=== PATIENT | male | born 1955 | race Caucasian/White ===

== ENCOUNTER 2017-08-18 16:30 | Outpatient (RCR) | payer BC, SELFPAY ==
--- NOTE | 2017-07-21 16:50 | HP.PTEVAL_ITS ---
Patient's Visit Information FORD GORE is a 61 year old M referred to Physical Therapy by Fidel Porter with a diagnosis of L shoulder sprain. Date of Evaluation: 07/21/17 Physical Therapist: TREY CurtisT, OC - Visit Plan Frequency: 2-3x /Week Duration: 4-6 Weeks Plan: 2-3x/week for 4-6 weeks. 1. US to R biceps origin area. 2. Gentle PROM and make sure patient resting it properly. 3. Painfree strength RC and scap. 4. TENS and ice if needed. EG to recheck after 3 weeks for referral back to doctor if no better. - Subjective Subjective: L shoulder pain for a while. Reaching OH was bothering it and he scheduled with [place]. 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 Gave him a cortisone shot and that helped. MRI did not show tears. Cortisone shot has helped a little bit but not much. 50% better for a couple days. Hurts at night if doesn't keep it right at his side. Works: with a hoist , avoids pulling with L UE and using two wrenches hurts. Not on limited duty. Getting out of bed reaching hurts. dressing hurts to put belt on behind him. Shirt on will set it off. Hobbies: workouts 3days per week and is still doing spinning classes, does avoid overhead workout. - Pain L shoulder Pain Intensity (Out of 10): 5 Pain Intensity Range: 4, 9 Comment: laterally. - Objective Posture is forward head and scap slightly. Tender to touch on biceps tendon and superior shoulder g-h joint L. AROM full but pain end of flexion and IR. elbow and wrist ROM WFL. Strength UE 4+/5 B, elbow and shoulder. Reflexes 2/3 bi and tri. Sensation is WNL to gross light touch in UE. - HK L. + neer L. + labral active test L. - sulcus - Goals Goal 1:: Full aROM without pain kn L shoulder. Goal 2:: Painfree at rest. Goal Time Frame: 4-6 Weeks Goal 3:: I approp HEp to minimize future problems. Goal Time Frame: 4-6 Weeks Goal 4:: Sleep without interruption Goal Time Frame: 4-6 Weeks Goal 5:: Reacha t work without noticing shoulder. Goal Time Frame: 4-6 Weeks - Rehabilitation Potential Physical Therapy Diagnosis: l shoulder sprain/labral pathology. Rehabilitation Potential: Fair - Anticipated Interventions Patient/Client Instruction: Educate patient on: Condition, Plan of Care For the Purpose of:: To decrease pain, To increase ROM, To improve ability of physical actions for home/community/work/leisure Therapeutic Exercise to Include: Strength training, Postural training, Passive ROM, Active ROM For the Purpose of:: To decrease pain, To increase ROM, To improve muscle performance and motor function, To improve ability of physical actions for home/ community/work/leisure Manual Therapy Techniques to Include: Mobilization Comment: grade 1/2 g-h L For the Purpose of:: To increase ROM TENS: Yes Cryotherapy (ice pack, ice massage): Yes Ultrasound (thermal/non thermal): Yes - nonthermal L bicep area origin For the Purpose of:: To decrease pain, To decrease swelling/inflammation Thank you for the opportunity to evaluate your patient. For Medicare and Medicare HMO plans, please review the plan of care and approve it. It will need to be FAXED BACK to us at [phone] for Medicare purposes. Please let me know if there are questions or concerns regarding this plan of care. Physician Signature: Date:
--- NOTE | 2017-08-18 16:30 | DT_ITS ---
This patient was seen during an EMR downtime August 15, 2017 - August 22, 2017. This patient may have a combination of paper and electronic documentation or all paper documentation. All documentation is viewable within the e-chart portion of [facility] for each patient visit.
--- NOTE | 2017-10-20 12:46 | HP.PTDCNRP_ITS ---
HP - Discharge Summary (1) - Patient Information FORD GORE was seen in my office for initial evaluation on 07/21/17. The following Plan of Care was established for this patient: Initial Frequency: 2-3x /Week Initial Duration: 4-6 Weeks - Anticipated Interventions Patient/Client Instruction: Educate patient on: Condition, Plan of Care For the Purpose of:: To decrease pain, To increase ROM, To improve ability of physical actions for home/community/work/leisure Therapeutic Exercise to Include: Strength training, Postural training, Passive ROM, Active ROM For the Purpose of:: To decrease pain, To increase ROM, To improve muscle performance and motor function, To improve ability of physical actions for home/ community/work/leisure Manual Therapy Techniques to Include: Mobilization Comment: grade 1/2 g-h L For the Purpose of:: To increase ROM TENS: Yes Cryotherapy (ice pack, ice massage): Yes Ultrasound (thermal/non thermal): Yes - nonthermal L bicep area origin For the Purpose of:: To decrease pain, To decrease swelling/inflammation This patient was last seen in our office 08/18/17. Pertinent comments regarding their Physical therapy will appear below: Pt seen for 6 visits overall with three noshows in the middle. Was to f/u with PT at the end of August but did not attend that visit. Will discontinue due to nonattendance. At this point I will be discontinuing this patient from physical therapy. I would be happy to see this patient again in the future if found appropriate by the physician. Thank you! Santiago Butler, DPT, OC
== END 2017-08-18 19:00 | disposition home or self-care (01) ==
LOC: PT 16:30
PROVIDERS: Visit Provider Orthopaedic Surgery
DX: S43.492D Other sprain of left shoulder joint, subsequent encounter (principal)
CPT/HCPCS: 97014; 97035; 97110; 97162; G0283

== ENCOUNTER 2018-11-22 07:39 | Emergency (ER) | payer BC, SELFPAY ==
[2018-11-22 07:39] VITALS: BP 163/82; PULSE 64; RESP 16; TEMP 36.6; O2SAT 97; BMI 24.3
--- NOTE | 2018-11-22 07:52 | EKG12_ITS ---
Test Reason : VISION Blood Pressure : / mmHG Vent. Rate : 066 BPM Atrial Rate : 066 BPM P-R Int : 168 ms QRS Dur : 082 ms QT Int : 398 ms P-R-T Axes : 072 068 054 degrees QTc Int : 417 ms Normal sinus rhythm Normal ECG Confirmed by DARIAN ESPINOSA, DEISI ([id number]), industrial editor TIFFANIE HOOKS ([id number]) on 11/24/2018 11:35:30 AM Referred By: MELISSA Confirmed By:AHSAN FARMER MD
--- NOTE | 2018-11-22 07:53 | MRI_ITS ---
STUDY: MRI BRAIN WITHOUT CONTRAST REASON FOR EXAM: Male, 63 years old. Left-sided visual changes. TECHNIQUE: Standardized multiplanar fat and water weighted pulse sequences were obtained. COMPARISON: CT of the head dated January 27, 2016. FINDINGS: There is mild cerebral atrophy with widening of the extra-axial spaces and ventricular dilatation. There are a limited number of small white matter hyperintensities, distributed throughout the deep white matter tracts of the cerebral hemispheres, consistent with mild chronic white matter ischemic changes. There is no evidence for recent intracranial ischemia or other cause of cytotoxic edema on diffusion weighted imaging (DWI). There is a focus of susceptibility artifact in the right periatrial white matter. This is probably a result of the previous petechial hemorrhage Normal bilateral basal ganglia. Normal thalami. There is no extra-axial fluid accumulation. Normal flow voids within the major intracranial circulation suggesting patency by spin echo criteria. Normal sella turcica, pituitary gland, infundibular stalk, optic chiasm and hypothalamus. Normal tectal plate and pineal gland. Normal midbrain, harvey and medulla. Normal cerebellum. Normal basal cisterns. Normal bilateral temporal bones. Normal bilateral internal auditory canals. No demonstrated orbital abnormality, within the constraints of a routine brain study. There appears to be a complete opacification of the right maxillary sinus with what may represent inspissated secretions or mucoperiosteal thickening. Normal calvarium and skull base. Normal visualized soft tissue structures. Normal visualized upper cervical spine. MRI/Brain without Contrast IMPRESSION: 1. Involutional changes of the brain, as described above. 2. Susceptibility artifact in the right periatrial region may be the result of previous hemorrhagic infarct. 3. Complete opacification of the right maxillary sinus, new since the previous study Electronically Signed: Patience Sahni MD at 9:47 EDT , Service support ,
--- NOTE | 2018-11-22 07:55 | ED.VIS.GEN ---
History of Present Illness Chief Complaint: Vision Prob Informant: Patient Onset: Today Narrative: Patient has no current complaints. He had an episode of about 15 minutes this morning where he thought he may have had some vision changes on the left, his screen on the computer was somewhat blurry, this is mostly in the left eye however when he closed his left eye he still had troubles concentrating with his right eye. He did not see any floaters. He did not see a curtain close down on him, he did not have partial vision changes this was a diffuse blurred vision with the left eye involved more than the right. He denies any headache. He denies any weakness paresthesia speech difficulties or confusion. He denies palpitations recently chest pain or shortness of breath. Past Medical History - Allergies and Home Meds Allergies/Adverse Reactions: Allergies No Known Allergies Allergy (Verified 11/22/18 07:39) Primary Care Physician: Cheng Nunez MD [Primary Care Provider] - Past Medical History: - - Hypertension, hypercholesterolemia Smoking Status: Never smoker Review of Systems All systems negative except as indicated General: Denies: Fever Eyes: Reports: Visual changes - bilaterally Cardiovascular: Denies: Chest pain, Palpitations Respiratory: Denies: Dyspnea, Cough Gastrointestinal: Denies: Abdominal pain, Nausea Musculoskeletal: Denies: Myalgias, Neck pain Skin: Denies: Rash Neurological: Denies: Headache, Weakness Endocrine: Denies: Polyuria, Polydipsia Physical Exam Vital Signs/Narrative: Vital Signs Temp Pulse Resp BP Pulse Ox 11/22/18 07:39 97.8 F 64 16 163/82 H 97 Inital Vital Signs reviewed: Yes General: Well nourished, Well developed Eyes: Perrl, EOMI, - - Pupils are equal and reactive bilaterally. No conjunctival erythema. Posterior exam is limited secondary to myosis. He has normal visual bertrand without any deficit. He has normal vision, see visual acuity. ENT: Moist mucous membranes Neck: Supple Cardiovascular: Regular rate, Regular rhythm Respiratory: No distress, CTA bilaterally Abdomen: Soft Back: Nontender, Normal Inspection Extremities: Nontender, No edema Skin: Normal color Neurological: Alert, Cranial nerves II-XII grossly intact, Normal Strength, Normal Sensation, Normal Gait. Negative for: Confused, Weakness Psychological: Normal affect Diagnostic/Tx/Re-eval - Rhythm Strip Rhythm Strip: Sinus Rhythm Rate: 66 Ectopy: None - EKG Initial EKG Interpretation: Sinus Rhythm, No Acute Injury Pattern, - - Normal CT interval. Normal ST segments. Normal QTC. No ischemia. Interpreted by emergency doctor - Medical Decision Making Patient had very vague symptoms, his ABCD 2 score is 2. I am not sure if this is a TIA however he has normal vision at this time he has no symptoms and he has a normal MRI in the emergency department I believe he is safe for discharge. I will follow-up with ophthalmology. He also needs to follow-up with PCP. ED Disposition - Plan for ED Patient: Disposition: Home or Assisted Living Diagnosis: Blurred vision Referrals: Cheng Nunez MD [Primary Care Provider] - 3-5 Days Mamta Lubin MD [STAFF PHYSICIAN] - 2 Days Additional Instructions: If you have any further vision changes, numbness, confusion, speech problems or weakness please return to the emergency department right away
[2018-11-22 08:09] VITALS: O2SAT 98
[2018-11-22 08:21] LABS: Absolute Lymphocyte Count 1.42 X10^3/uL (0.83-4.51); Absolute Neutrophil Count 2.7 X10^3/uL (2.0-7.7); Basophil# 0.05 X10^3/uL; Eosinophil# 0.24 X10^3/uL; Eosinophils% 4.9 % (0-5); Hematocrit 47.8 % (40-54); Hemoglobin 15.6 g/dL (13.0-16.5); Lymphocyte # 1.42 X10^3/ul (4.0); Lymphocyte % 29.1 % (19-41); Mean Corp Hgb Conc 32.6 g/dL (32-36); Mean Corpuscular Hgb 28.5 pg (27.0-32.0); Mean Corpuscular Volume 87.2 fL (80-94); Mean Platelet Vol. 10.5 fl (6.2-12.0); Monocyte# 0.49 X10^3/uL; NRBC Flagged by Analyzer 0 % (0-5); Neutrophil # 2.67 X10^3/uL (2.7-7.7); Neutrophil % 54.8 % (47-70); Platelet Count 180 K/mm3 (150-450); RBC Distribution Width CV 12.4 % (11.6-14.6); RBC Distribution Width SD 39.6 fl (35.1-43.9); Red Blood Count 5.48 M/mm3 (4.6-6.2); White Blood Count 4.9 K/mm3 (4.4-11.0)
--- NOTE | 2018-11-22 08:21 | RAD_ITS ---
STUDY: X-RAY - ORBITS REASON FOR EXAM: Male, 63 years old. This study is being performed as a clearance examination for exclusion of orbital metal, prior to the performance of an MRI examination. TECHNIQUE: 2 view(s) of the orbits were obtained. COMPARISON: None. FINDINGS: Normal bilateral orbits without a metallic orbital foreign body. Normal visualized facial bones. Opacification of the right maxillary sinus. The soft tissue structures are unremarkable. RAD/Orbits for Foreign Body IMPRESSION: No demonstrated metallic orbital foreign body. The patient is cleared for an MRI examination. Opacification of the right maxillary sinus. Electronically Signed: Sukhdev Kowalski, at 9:21 EDT , Service support ,
[2018-11-22 08:40] LABS: Anion Gap 3 (5-15); BUN 17 mg/dL (7-18); Calcium,Total 9.2 mg/dL (8.5-10.1); Chloride 108 mmol/L (98-107); Creatinine, Serum 1.06 mg/dL (0.70-1.30); EST Glomerular Filtration Rate 75 mL/min (>60); Est Glom Filt Rate - Afr Amer 91 mL/min (>60); Estimated Creatinine Clearance 74.61 ml/min; Glucose 89 mg/dL (74-106); Potassium 4.8 mmol/L (3.5-5.1); Sodium Level 140 mmol/L (136-145)
[2018-11-22 09:48] VITALS: O2SAT 99
[2018-11-22 10:20] VITALS: BP 155/97; RESP 20
== END 2018-11-22 10:22 | disposition home or self-care (01) ==
PROVIDERS: Emergency Provider Emergency Medicine; Family Provider Internal Medicine; PCP Internal Medicine
DX: H53.8 Other visual disturbances (principal); H57.03 Miosis; I10 Essential (primary) hypertension; E78.00 Pure hypercholesterolemia, unspecified
CPT/HCPCS: 70030; 70551; 80048; 84484; 85025; 93005; 99284; A4216

== ENCOUNTER → 2018-12-28 16:40 | Outpatient (CLI) | payer BC, SELFPAY ==
--- NOTE | 2018-12-28 16:43 | CT_ITS ---
STUDY: CT MAXILLOFACIAL SINUSES REASON FOR EXAM: Male, 63 years old. Chronic maxillary sinusitis. RADIATION DOSAGE (If Supplied By Facility): CTDIvol = ( 33.06 ) mGy, DLP = ( 776.00 ) mGycm TECHNIQUE: The patient was scanned in a multi detector CT scanner. High resolution axial imaging was performed without the administration of intravenous contrast material. Sagittal and coronal images were reconstructed. Individualized dose optimization techniques were used for this CT. COMPARISON: None. FINDINGS: FRONTAL SINUSES: Minimal mucosal thickening in the medial portion of the right frontal sinus. Normal left frontal sinus. ETHMOIDAL SINUSES: Mild mucosal thickening of the right anterior ethmoid sinus. The remaining ethmoids are normal. MAXILLARY SINUSES: Complete opacification of the right maxillary sinus with mild sclerotic wall thickening suggesting chronic sinusitis. Very minimal mucosal thickening in the left maxillary sinus. SPHENOIDAL SINUSES: Normal aeration, without mucosal inflammatory disease. Obstructed right ostiomeatal unit due to mucosal thickening extending out into the semilunar hiatus and the right lateral nasal wall. Normal and patent left ostiomeatal unit. Normal bilateral middle turbinates. Normal bilateral inferior turbinates. Mild right nasal septal deviation. There is patency of the bilateral nasal airways. The visualized osseous structures are normal. The visualized bilateral orbital contents are normal. Mild atherosclerotic calcifications involving both internal carotid artery siphons. CT/Sinus/Facial Bone IMPRESSION: 1. Complete opacification of the right maxillary sinus with sclerotic wall thickening suggesting chronic sinusitis. This is presumably secondary to the obstructed right ostiomeatal unit. Endoscopy will be very helpful in excluding any obstructing lesion in the right lateral nasal wall. 2. Mild mucosal thickening in the right anterior ethmoid sinus, left maxilla sinus and in the medial aspect of the right frontal sinus. 3. Patent left ostiomeatal unit. Electronically Signed: Eduardo Dominguez MD at 10:13 EDT , Service support ,
== END ==
PROVIDERS: Family Provider Internal Medicine; PCP Internal Medicine; Referring Provider Otolaryngology; Visit Provider Otolaryngology
DX: J32.0 Chronic maxillary sinusitis (principal)
CPT/HCPCS: 70486

== ENCOUNTER 2023-05-10 11:00 | Emergency (ER) | payer MEDICARE, OTHER, SELFPAY ==
[2023-05-10 11:01] VITALS: BP 196/104; PULSE 73; RESP 16; TEMP 36.6; O2SAT 99; BMI 24.6
--- NOTE | 2023-05-10 11:12 | CT_ITS ---
STUDY: CTA HEAD AND NECK WITH CONTRAST REASON FOR EXAM: Male, 67 years old. Headache RADIATION DOSAGE (If Supplied By Facility): CTDIvol = ( 28.88 ) mGy, DLP = ( 1431.85 ) mGycm TECHNIQUE: CT angiography was performed with a multi-detector CT scanner. Data acquisition was obtained from the skull base through the vertex following intravenous administration of IV 100mL [id number]. MIP images were reconstructed from the axial data set. Post-processing of the angiographic images was performed, with multiplanar reformation and 3D reconstruction. Individualized dose optimization techniques were used for this CT. COMPARISON: No relevant priors. FINDINGS: Normal bilateral petrous carotid arteries. There is calcified plaque formation of the right cavernous carotid artery, without a cross-sectional luminal stenosis. There is calcified plaque formation of the left cavernous carotid artery, without a cross-sectional luminal stenosis. Normal right A1 segments of the anterior cerebral artery. Normal left A1 segments of the anterior cerebral artery. Normal intact anterior communicating artery (ACOM). Normal bilateral A2 segments of the anterior cerebral arteries. Normal right M1 and M2 segments of the middle cerebral arteries, with a normal M1 bifurcation. Normal left M1 and M2 segments of the middle cerebral arteries, with a normal M1 bifurcation. Normal right posterior communicating artery (PCOM). Normal left posterior communicating artery (PCOM). Normal bilateral vertebral arteries. Normal basilar artery with a normal basilar bifurcation. The visualized bilateral superior cerebellar (SCA) arteries are normal. Normal bilateral P1, P2 and visualized P3 segments of the posterior cerebral arteries. There is no demonstrated aneurysm of the [place] of [place]. There is opacification of the right maxillary sinus. Soft tissue density is seen protruding into the right nasal fossa suggestive of possible polyposis. There is partial opacification of the ethmoid sinuses. Mucosal thickening of the left maxillary sinus. AORTIC ARCH: There is atherosclerotic calcific plaque formation of the aortic arch and great vessels arising from the aortic arch, without a hemodynamically significant stenosis. There is a bovine origin of the great vessels with a common origin of the brachiocephalic and left common carotid artery. Normal origin of the left subclavian artery. RIGHT CAROTID ARTERIES: Normal right common carotid artery (CCA). Normal right common carotid bulb. There is mild atherosclerotic plaque formation of the origin of the right internal carotid artery with less than 50% cross sectional diameter stenosis. Normal visualized cervical portion of the right internal carotid artery. Normal origin of the right external carotid artery (ECA). LEFT CAROTID ARTERIES: Normal left common carotid artery (CCA). Normal left common carotid bulb. There is mild atherosclerotic plaque formation of the origin of the left internal carotid artery with less than 50% cross sectional diameter stenosis. Normal visualized cervical portion of the left internal carotid artery. Normal origin of the left external carotid artery (ECA). VERTEBRAL ARTERIES: Normal bilateral vertebral arteries. CT/CTA Head AND Neck W/ Contrast IMPRESSION: Calcific plaques at 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 Opacification of the right maxillary sinus with a soft tissue density seen in the right nasal fossa. Partial opacification of the ethmoid sinuses and left maxillary sinus. Electronically Signed: Sukhdev Kowalski MD at 12:25 EST ,
--- NOTE | 2023-05-10 11:13 | EX.ED.VIS.HA ---
HPI History of Present Illness Chief Complaint: Headache Detail of Chief Complaint: Headache Informant: patient Narrative Narrative: Patient presents with headache that initially started 3 days ago. Patient had a headache that he rated about an 8 out of 10 that he woke up with. He had had a Temporary cap placed to his left upper molar last week and thought maybe the headache was related. He denies fevers or chills or sweats. He describes some head pressure. He typically does not get headaches. He denies any falls or head injuries. Headache was mostly gone yesterday but woke up with a mild headache today and then he did a spin class which made the headache significantly worse and now rates it a 7 out of 10. He denies nausea or vomiting or photophobia. Does not have history of migraines. No family history of brain tumors or aneurysms. PFSH FOR[facility]LY [facility], [facility] Medical History no medical history Home Medications multivitamin (Daily Multiple tablet) 1 ea PO DAILY 07/21/16 [History Last Taken 07/21/16] atorvastatin 20 mg tablet 1 tab PO DAILY 11/22/18 [History Last Taken Unknown] lisinopril 10 mg tablet 10 mg PO DAILY 11/22/18 [History Last Taken Unknown] Allergy/AdvReac Type Severity Reaction Status Date / Time No Known Allergies Allergy Verified 05/10/23 11:03 Family History no significant family his Surgical History no surgical history Social History Smoking Status: Never smoker ROS ROS ED Review of Systems ROS Unobtainable: other Constitutional Constitutional ED: Reports lethargy; Denies chills, fever(s), sweats or weight loss Eyes Eyes: Denies blurry vision, change in vision or diplopia ENT ENT ED: Denies rhinorrhea or sore throat Cardiovascular Cardiovascular: Denies chest pain, orthopnea or racing heartbeat Respiratory/Chest Respiratory/Chest: Denies cough, dyspnea, dyspnea on exertion, orthopnea or sputum Gastrointestinal Gastrointestinal: Denies abdominal pain, diarrhea, nausea or vomiting Genitourinary Genitourinary ED: Denies dysuria, hematuria or urinary frequency Musculoskeletal Musculoskeletal: Denies arthralgias, back pain, myalgias or neck pain Integumentary Denies abscess, Abrasions or rash Neurologic Neurologic: Reports headache(s); Denies weakness Psychiatric Psychiatric: Denies anxiety, depression or suicidal thoughts Endocrine Endocrinology: Denies polydipsia, polyphagia or polyuria Hematologic/Lymphatic Hematologic/Lymphatic: Denies easy bleeding, easy bruising or lymphadenopathy Allergic/Immunologic Allergic/Immunologic ED: Denies mouth swelling, tongue swelling or urticaria EXAM Physical Exam Const Vital Signs: 05/10/23 11:01 05/10/23 13:00 05/10/23 13:30 Temperature 97.8 F 98.9 F 98.9 F Temperature Source Temporal Oral Pulse Rate 73 72 72 Respiratory Rate 16 18 18 Blood Pressure 196/104 H 185/75 H 185/75 H Blood Pressure Mean 134 111 111 Pulse Ox 99 99 99 Oxygen Delivery Method Room Air Room Air Positive well nourished and well developed General Appearance ED: well developed and NAD HEENT Reports TM's clear and moist mucous membranes HEENT Narrative: Dentition-patient has a To the left upper molar is temporary. No gingival erythema or abscess. No tenderness on exam. No facial swelling. normocephalic and atraumatic; Negative for trauma or tenderness Tympanic Membrane ED: Yes TM's clear Eyes PERRL and EOMs intact bilaterally General Eye ED: Negative for pale conjunctiva or scleral icterus Neck no lymphadenopathy, supple and no JVD General: Negative for tenderness Chest Wall inspection of chest normal and palpation of chest normal Chest: Negative for tenderness Resp normal respiratory effort and clear to auscultation bilaterally Effort and Inspection: Negative for respiratory distress or pain with movement Auscultation: Negative for rhonchi, wheezes or diminished lung sounds Cardio regular rate, regular rhythm, S1 normal heart sound, S2 normal heart sound and no murmurs Peripheral Pulses: pulses 2+ throughout GI normal to inspection, nondistended, normoactive bowel sounds, soft to palpation, non-tender, non-distended and no masses Back/Spine no CVA tenderness and no thoracic nor lumbar tenderness Extremity normal to inspection General Extremety ED: Negative for edema General Extremity: Negative for edema Neuro oriented x3, CN's II-XII intact bilaterally, no sensory deficits noted and gait normal Neuro Narrative: Finger-nose and heel cota testing within normal limits, negative Romberg, negative for drift, fundi benign Sensorium / Orientation: awake, alert, oriented to person, oriented to place and oriented to time Motor Exam: strength 5/5 throughout and strength abnormal Psych mental status grossly normal Skin no rashes or lesions noted and no wounds MDM MDM MDM Narrative Medical decision making narrative: Patient presents with headache x 3 days. Mild runny nose and mild cough. Headache worse after exercise this morning. IV line established. CBC with differential obtained showing a 5.8 with hemoglobin 14.5 and platelet count of 220. Chemistries were unremarkable. I did perform a CTA of the head and neck which showed just 50% stenosis of bilateral carotids otherwise no acute findings without evidence of aneurysm or dissection. Patient was given normal saline while in the department. I did order Toradol 15 mg IV. COVID flu and RSV testing was undertaken and he was positive for COVID-19. At this time I suspect headache likely related to COVID-19. Lab Data Attestation: I reviewed the patient's lab results. Labs: Laboratory Results - last 24 hr 05/10/23 11:20 WBC 5.8 RBC 5.01 Hgb 14.6 Hct 43.2 MCV 86.2 MCH 29.1 MCHC 33.8 RDW Std Deviation 39.1 RDW Coeff of Angela 12.3 Plt Count 220 MPV 10.0 Immature Gran % (Auto) 0.200 Neut % (Auto) 66.6 Lymph % (Auto) 20.5 [place] % (Auto) 8.9 Eos % (Auto) 3.1 Baso % (Auto) 0.7 Absolute Neuts (auto) 3.9 Absolute Lymphs (auto) 1.20 Nucleated RBC % 0 Sodium 138 Potassium 3.7 Chloride 105 Carbon Dioxide 30.0 Anion Gap 3 L BUN 13 Creatinine 1.14 Estim Creat Clear Calc 61.67 Est GFR (MDRD) Af Amer 83 Est GFR (MDRD) Non-Af 68 BUN/Creatinine Ratio 11.4 Glucose 94 Calcium 9.4 Radiography Diagnostic Testing: Clinical Impression(s) from Imaging Studies Head/Neck CTA 05/10/23 11:12 IMPRESSION: Calcific plaques at 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 Opacification of the right maxillary sinus with a soft tissue density seen in the right nasal fossa. Partial opacification of the ethmoid sinuses and left maxillary sinus. Electronically Signed: Sukhdev Kowalski MD at 12:25 EST , Discharge Plan Triage Chief Complaint: Headache ED Provider: Surjit Mcdonough Dx/Rx/DC Orders Clinical Impression: COVID-19, Headache Instructions: Caring for Someone Who Has COVID-19, ED Headache Unspecified, ED Viral Syndrome (Adult) Prescriptions: No Action multivitamin [Daily Multiple] 1 EACH tablet 1 ea PO DAILY atorvastatin 20 MG tablet 1 tab PO DAILY lisinopril 10 mg tablet 10 mg PO DAILY Primary Care Provider: Cheng Nunez Referrals: Cheng Nunez MD [Primary Care Provider] - Disposition Disposition: Home, Self Care Discharge Date/Time: 05/10/23 13:32
[2023-05-10] MEDS: 0.9% Normal Saline (1000mL) 1,000 ML 1000 ML IV (11:26)
[2023-05-10 11:31] LABS: Absolute Neutrophil Count 3.9 X10^3/uL (2.0-7.7); Basophil# 0.04 X10^3/uL; Basophil% 0.7 % (0-1); Eosinophil# 0.18 X10^3/uL; Eosinophils% 3.1 % (0-5); Hematocrit 43.2 % (40-54); Hemoglobin 14.6 g/dL (13.0-16.5); Lymphocyte % 20.5 % (19-41); Mean Corp Hgb Conc 33.8 g/dL (32-36); Mean Corpuscular Hgb 29.1 pg (27.0-32.0); Mean Corpuscular Volume 86.2 fL (80-94); Monocyte# 0.52 X10^3/uL; Monocyte% 8.9 % (0-10); NRBC Flagged by Analyzer 0 % (0-5); Neutrophil # 3.89 X10^3/uL (2.7-7.7); Neutrophil % 66.6 % (47-70); Platelet Count 220 K/mm3 (150-450); RBC Distribution Width CV 12.3 % (11.6-14.6); RBC Distribution Width SD 39.1 fl (35.1-43.9); Red Blood Count 5.01 M/mm3 (4.6-6.2); White Blood Count 5.8 K/mm3 (4.4-11.0)
[2023-05-10 11:44] LABS: Anion Gap 3 (5-15); BUN 13 mg/dL (7-18); BUN/Creat Ratio 11.4 RATIO (10-20); Calcium,Total 9.4 mg/dL (8.5-10.1); Chloride 105 mmol/L (98-107); Creatinine, Serum 1.14 mg/dL (0.70-1.30); EST Glomerular Filtration Rate 68 mL/min (>60); Est Glom Filt Rate - Afr Amer 83 mL/min (>60); Estimated Creatinine Clearance 61.67 ml/min; Glucose 94 mg/dL (74-106); Potassium 3.7 mmol/L (3.5-5.1); Sodium Level 138 mmol/L (136-145)
[2023-05-10] MEDS: Ketorolac 15 MG/ML Vial IV (12:40)
[2023-05-10 13:00] VITALS: BP 185/75; PULSE 72; RESP 18; TEMP 37.2; O2SAT 99
[2023-05-10 13:30] VITALS: BP 185/75; PULSE 72; RESP 18; TEMP 37.2; O2SAT 99
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
== END 2023-05-10 13:32 | disposition home or self-care (01) ==
PROVIDERS: Emergency Provider Emergency Medicine; PCP Internal Medicine; Visit Provider Emergency Medicine
DX: U07.1 COVID-19 (principal); R51.9 Headache, unspecified; Z79.899 Other long term (current) drug therapy
CPT/HCPCS: 70496; 70498; 80048; 85025; 87631; 96361; 96374; 99282; J7030; Q9967; A4216

== ENCOUNTER 2024-01-14 05:01 | Emergency (ER) | payer MEDICARE, OTHER, SELFPAY ==
[2024-01-14] VITALS (21 sets, daily range): BP systolic 99–193; BP diastolic 58–146; PULSE 51–70; RESP 7–17; TEMP 36.6; O2SAT 95–98; BMI 25.5
--- NOTE | 2024-01-14 05:09 | EDS_ITS ---
HPI History of Present Illness Chief Complaint: Chest Pain Informant: patient Onset/Context/Timing Onset: Yesterday Activity at onset: gradual Timing: Intermittent Quality: Positive for Sharp Location: Substernal and Left Parasternal Worsened By: Exertion Relieved By: Nothing Associated Symptoms: Negative for Nausea, Vomiting, Diaphoresis, Dyspnea, Cough, Fever, Lightheadedness or Palpitations Narrative Narrative: Patient presents with chest pain that began last night. Patient states that it is intermittent. Patient describes it as mild sharp pain. Patient states it is over the substernal and left parasternal area. Patient states he was sitting and watching TV when the pain began. Patient states he was raking leaves yesterday without any pain at all. Patient denies any nausea or vomiting. Patient denies any diaphoresis or shortness of breath. Patient denies any cough or fever. Patient denies any palpitations. CVD Risk Factors: Positive for Hypertension and Hypercholesterolemia; Negative for Diabetes, Family History 1' </=55 or Smoking PE Risk Factors: Negative for Recent Travel/Surgery, Recent Immobilization, Cancer or OCP + Smoking + >/=35 PFSH PFSH Medical History (Updated 01/14/24 @ 06:[address] Santiago Mckeon, DO) Hypercholesterolemia Hypertension Medical History no medical history Home Medications ?Medication ?Instructions ?Recorded ?Last Taken ?Type multivitamin (Daily Multiple 1 ea PO DAILY 07/21/16 07/21/16 History tablet) Allergy/AdvReac Type Severity Reaction Status Date / Time No Known Allergies Allergy Verified 01/14/24 05:10 Surgical History no surgical history no surgical history Social History (Updated 01/14/24 @ 05:[address] Santiago Mckeon, DO) Smoking Status: Former smoker ROS ROS ED Constitutional Constitutional ED: Denies chills or fever(s) Eyes Eyes: Denies blurry vision or change in vision ENT ENT ED: Denies rhinorrhea or sore throat Cardiovascular Cardiovascular: Reports chest pain; Denies palpitations Respiratory/Chest Respiratory/Chest: Denies cough or dyspnea Gastrointestinal Gastrointestinal: Denies nausea or vomiting Genitourinary Genitourinary ED: Denies dysuria or hematuria Musculoskeletal Musculoskeletal: Denies back pain or neck pain Integumentary Denies abscess or rash Neurologic Neurologic: Denies headache(s) or weakness Allergic/Immunologic Allergic/Immunologic ED: Denies mouth swelling or urticaria EXAM Physical Exam Const Vital Signs: 01/14/24 05:02 01/14/24 05:10 01/14/24 05:10 Temperature 97.9 F Temperature Source Oral Pulse Rate 70 66 Respiratory Rate 12 17 Respiratory Effort Normal Blood Pressure 185/108 H Blood Pressure Mean 133 Pulse Ox 98 Oxygen Delivery Method Room Air 01/14/24 05:15 01/14/24 05:26 01/14/24 05:30 Temperature Temperature Source Pulse Rate 63 64 Respiratory Rate 7 L Respiratory Effort Blood Pressure 178/96 H 165/146 H Blood Pressure Mean 121 154 Pulse Ox Oxygen Delivery Method Room Air 01/14/24 05:45 01/14/24 05:45 01/14/24 06:00 Temperature Temperature Source Pulse Rate 66 Respiratory Rate Respiratory Effort Blood Pressure 175/103 H 175/103 H 182/107 H Blood Pressure Mean 125 125 130 Pulse Ox Oxygen Delivery Method 01/14/24 06:02 01/14/24 06:15 01/14/24 06:27 Temperature Temperature Source Pulse Rate 63 64 Respiratory Rate 13 9 L Respiratory Effort Blood Pressure 160/89 H 193/110 H 160/89 H Blood Pressure Mean 112 135 110 Pulse Ox 95 Oxygen Delivery Method Room Air 01/14/24 06:30 01/14/24 06:45 01/14/24 07:00 Temperature Temperature Source Pulse Rate 60 58 L 56 L Respiratory Rate 11 L 12 9 L Respiratory Effort Blood Pressure 165/97 H 162/84 H 134/80 H Blood Pressure Mean 117 107 96 Pulse Ox Oxygen Delivery Method Positive well nourished and well developed General Appearance ED: well developed and NAD HEENT Reports moist mucous membranes Neck supple and no JVD Chest Wall palpation of chest normal Resp normal respiratory effort and clear to auscultation bilaterally Cardio regular rate and regular rhythm GI soft to palpation, non-tender and non-distended Neuro oriented x3, CN's II-XII intact bilaterally and no sensory deficits noted Sensorium / Orientation: awake and alert Motor Exam: strength 5/5 throughout Psych mental status grossly normal Heart Score History: Slightly/Non-Suspicious ECG: Normal Age: >/= 65 years Risk Factors: 1 or 2 Risk Factors Troponin: </= Normal Limit Score: 3 MDM MDM MDM Narrative Medical decision making narrative: Differential diagnosis includes cardiac dysrhythmia, cardiac ischemia, electrolyte abnormality, pneumonia, pneumothorax, GERD, and anxiety. EKG will be obtained to assess for cardiac dysrhythmia and cardiac ischemia. Chest x-ray will be obtained to assess for pneumonia and pneumothorax. CBC will be obtained to assess for leukocytosis and anemia. Basic metabolic profile will be obtained to assess for electrolyte abnormality and renal function. High-sensitivity troponin will be obtained to assess for cardiac ischemia. Lab Data Attestation: I reviewed the patient's lab results. Lab results narrative: CBC was reviewed and was within normal limits. Basic metabolic profile was reviewed and was within normal limits. High-sensitivity troponin was reviewed and was normal at 11. Labs: Laboratory Results - last 24 hr 01/14/24 05:04 WBC 7.1 RBC 5.09 Hgb 14.9 Hct 43.8 MCV 86.1 MCH 29.3 MCHC 34.0 RDW Std Deviation 39.7 RDW Coeff of Angela 12.7 Plt Count 167 MPV 10.2 Immature Gran % (Auto) 0.300 Neut % (Auto) 69.7 Lymph % (Auto) 16.8 L [place] % (Auto) 9.4 Eos % (Auto) 3.1 Baso % (Auto) 0.7 Absolute Neuts (auto) 5.0 Absolute Lymphs (auto) 1.20 Nucleated RBC % 0 Sodium 140 Potassium 3.6 Chloride 107 Carbon Dioxide 29.0 Anion Gap 4 L BUN 16 Creatinine 1.00 Estim Creat Clear Calc 69.35 Est GFR (MDRD) Af Amer 96 Est GFR (MDRD) Non-Af 79 BUN/Creatinine Ratio 16.0 Glucose 100 Calcium 9.0 Troponin I High Sens 11 Radiography Chest X-Ray - ED: 2 View, Read by ED Physician, Read by Radiologist and No Acute Disease Diagnostic Testing: PA and lateral chest x-ray was obtained. There are 2 views. On my independent interpretation, lung bertrand are clear. There is normal cardiac silhouette. Bony thorax is normal. There is no acute process noted. Radiologist also interpreted the x-ray and agrees. EKG Initial EKG: Attestation: I personally reviewed and interpreted this EKG as follows: Interpretation: Sinus Rhythm (64) and No Acute Injury Pattern Comments: EKG was obtained. On my independent interpretation, it showed a normal sinus rhythm with a rate of 64. ID interval, QRS interval, and QTc intervals were all normal. [place] was normal. There are no acute ST or T wave changes. Prior EKG tracings: available for review Prior: Unchanged (11/22/2018) Treatment and Re-Evaluation :: Patient was given aspirin here. Patient is blood pressure increased to 185/108. Patient was given a dose of [place]. Patient was advised of his findings. Patient has a HEART score of 3. Patient was advised that this is low risk for acute cardiac event. Patient was instructed to follow-up with his primary care physician in 5 to 7 days. Patient with return if worse in any way. Patient understood and was agreeable with the plan. All questions were answered. Discharge Plan Triage Chief Complaint: Chest Pain ED Provider: Santiago Mckeon Dx/Rx/DC Orders Clinical Impression: Chest pain, Hypertension Instructions: ED Chest Pain, Uncertain Cause, ED Hypertension, Established Prescriptions: No Action multivitamin [Daily Multiple] 1 EACH tablet 1 ea PO DAILY Primary Care Provider: Care Physician,No Primary Referrals: Cheng Nunez MD [Med Staff - Environmental Science Program Director] - 3-5 Days Print Language: [place]
--- NOTE | 2024-01-14 05:26 | EKG12_ITS ---
Test Reason : CP Blood Pressure : */* mmHG Vent. Rate : 64 BPM Atrial Rate : 64 BPM P-R Int : 144 ms QRS Dur : 88 ms QT Int : 400 ms P-R-T Axes : 72 62 56 degrees QTcB Int : 412 ms Normal sinus rhythm Normal ECG Confirmed by DEBORA ESPINOSA, YASMIN ([id number]), map editor MIREILLE OCHOA ([id number]) on 01/16/2024 9:44:38 AM Referred By: MAURICE Confirmed By: YASMIN CAZARES MD
[2024-01-14] MEDS: Aspirin 81 MG TAB.CHEW 324 MG PO (05:31)
[2024-01-14 05:33] LABS: Basophil# 0.05 X10^3/uL; Basophil% 0.7 % (0-1); Eosinophil# 0.22 X10^3/uL; Eosinophils% 3.1 % (0-5); Hematocrit 43.8 % (40-54); Hemoglobin 14.9 g/dL (13.0-16.5); Lymphocyte % 16.8 % (19-41); Mean Corpuscular Hgb 29.3 pg (27.0-32.0); Mean Corpuscular Volume 86.1 fL (80-94); Mean Platelet Vol. 10.2 fl (6.2-12.0); Monocyte# 0.67 X10^3/uL; Monocyte% 9.4 % (0-10); NRBC Flagged by Analyzer 0 % (0-5); Neutrophil # 4.97 X10^3/uL (2.7-7.7); Neutrophil % 69.7 % (47-70); Platelet Count 167 K/mm3 (150-450); RBC Distribution Width CV 12.7 % (11.6-14.6); RBC Distribution Width SD 39.7 fl (35.1-43.9); Red Blood Count 5.09 M/mm3 (4.6-6.2); White Blood Count 7.1 K/mm3 (4.4-11.0)
--- NOTE | 2024-01-14 05:50 | RAD_ITS ---
EXAM: XR CHEST, 2 VIEWS CLINICAL INDICATION: chest pain TECHNIQUE: Frontal and lateral views of the chest. COMPARISON: No relevant prior studies available. FINDINGS: LUNGS AND PLEURAL SPACES: Normal. No consolidation or edema. No pneumothorax. No effusion. HEART: Normal heart size. MEDIASTINUM: No mediastinal or hilar mass. BONES/JOINTS: No acute abnormality. RAD/Chest PA and Lateral IMPRESSION: No acute cardiopulmonary disease. Electronically Signed: Yannick Gandara MD at 8:34 EDT ,
[2024-01-14 05:51] LABS: Anion Gap 4 (5-15); BUN 16 mg/dL (7-18); Chloride 107 mmol/L (98-107); EST Glomerular Filtration Rate 79 mL/min (>60); Est Glom Filt Rate - Afr Amer 96 mL/min (>60); Estimated Creatinine Clearance 69.35 ml/min; Glucose 100 mg/dL (74-106); Potassium 3.6 mmol/L (3.5-5.1); Sodium Level 140 mmol/L (136-145); Troponin-I HS 11 pg/mL (3.0-78.0)
[2024-01-14] MEDS: cloNIDine HCl 0.2 MG Tablet PO (06:27)
[2024-01-14 09:02] LABS: Troponin-I HS 11 pg/mL (3.0-78.0)
== END 2024-01-14 09:32 | disposition home or self-care (01) ==
PROVIDERS: Emergency Medicine; Emergency Provider Emergency Medicine; Visit Provider Emergency Medicine
DX: R07.9 Chest pain, unspecified (principal); E78.00 Pure hypercholesterolemia, unspecified; I10 Essential (primary) hypertension; Z87.891 Personal history of nicotine dependence
CPT/HCPCS: 71046; 80048; 84484; 85025; 93005; 99284; A4216